=== PATIENT | female | born 1965 | race Caucasian/White ===

== ENCOUNTER 2021-07-31 10:04 | Emergency (ER) | payer OTHER, SELFPAY ==
[2021-07-31 10:08] VITALS: BP 197/99; PULSE 91; RESP 18; TEMP 36.7; O2SAT 98; BMI 29.7
--- NOTE | 2021-07-31 10:11 | XRR_ITS ---
PROCEDURE INFORMATION: Exam: XR Chest Exam date and time: 07/31/2021 10:23 AM Age: 55 years old Clinical indication: Other: Weakness TECHNIQUE: Imaging protocol: XR of the chest. Views: 1 view. Other technique: Frontal portable upright view of the chest. COMPARISON: CT angio headneck* [id number] 07/31/2021 10:21 AM FINDINGS: Lungs: Mild left lateral basilar subsegmental atelectasis. The lungs are otherwise peripherally clear bilaterally. The pulmonary vasculature is normal. Pleural spaces: No pleural effusion. No pneumothorax. Heart/Mediastinum: The heart is normal in size and contour. Bones/joints: No acute abnormality identified. XR/XR chest 1V portable [id number] IMPRESSION: Mild left lateral basilar subsegmental atelectasis.
--- NOTE | 2021-07-31 10:11 | CTR_ITS ---
PROCEDURE INFORMATION: Exam: CT Head Without Contrast Exam date and time: 07/31/2021 10:16 AM Age: 55 years old Clinical indication: Weakness, extremity TECHNIQUE: Imaging protocol: Computed tomography of the head without contrast. Radiation optimization: All CT scans at this facility use at least one of these dose optimization techniques: automated exposure control; mA and/or kV adjustment per patient size (includes targeted exams where dose is matched to clinical indication); or iterative reconstruction. Other technique: STROKE PROTOCOL was implemented. COMPARISON: No relevant prior studies available. RADIATION DOSE METRICS: Total DLP (mGy-cm): 872.45 FINDINGS: Brain: Normal. No hemorrhage. Unremarkable white matter. No mass effect. Ventricles: No ventriculomegaly. Paranasal sinuses: Visualized sinuses are unremarkable. No fluid levels. Mastoid air cells: Visualized mastoid air cells are well aerated. Bones/joints: No acute abnormality. No acute fracture. Soft tissues: Unremarkable. CT/CT head wo con* [id number] IMPRESSION: No acute intracranial abnormality identified. ASSESSMENT: ASPECTS ([place] Stroke Program Early CT Score) is 10.
--- NOTE | 2021-07-31 10:12 | ECG_ITS ---
[facility] Test Date: 2021-07-31 Pat Name: Mariano Davis Department: Room: Gender: Female Counseling Department Chair: : 1965 Requested By: Rosalina Coughlin Order Number: [id number] Nikolay MD: Felipe Marcelino M.D. Measurements Intervals Clark Rate: 82 P: 61 IL: 170 QRS: 80 QRSD: 84 T: 68 QT: 400 QTc: 468 Interpretive Statements SINUS RHYTHM WITH SINUS ARRHYTHMIA No previous ECG available for comparison Electronically Signed On 08-01-2021 15:27:53 CDT by Felipe Marcelino M.D. [id number]
--- NOTE | 2021-07-31 10:14 | CTR_ITS ---
PROCEDURE INFORMATION: Exam: CT Angiography Head With Contrast, Arteriography Exam date and time: 07/31/2021 10:21 AM Age: 55 years old Clinical indication: Weakness; Additional info: CVA TECHNIQUE: Imaging protocol: Computed tomography angiography of the head with contrast. Exam focused on the arteries. 3D rendering (Not supervised by radiologist): MIP reconstructed images were created by the technologist. Radiation optimization: All CT scans at this facility use at least one of these dose optimization techniques: automated exposure control; mA and/or kV adjustment per patient size (includes targeted exams where dose is matched to clinical indication); or iterative reconstruction. Contrast material: OMNI 350; Contrast volume: 95 ml; Contrast route: INTRAVENOUS (IV); COMPARISON: CT head wo con* [id number] 07/31/2021 10:16 AM RADIATION DOSE METRICS: Total DLP (mGy-cm): 3.91 FINDINGS: ANTERIOR CIRCULATION: Right internal carotid artery: Unremarkable. Intracranial segment is patent with no significant stenosis. No aneurysm. Right middle cerebral artery: Unremarkable. No occlusion or significant stenosis. No aneurysm. Right anterior cerebral artery: Unremarkable. No occlusion or significant stenosis. No aneurysm. Left internal carotid artery: Unremarkable. Intracranial segment is patent with no significant stenosis. No aneurysm. Left middle cerebral artery: Unremarkable. No occlusion or significant stenosis. No aneurysm. Left anterior cerebral artery: Unremarkable. No occlusion or significant stenosis. No aneurysm. POSTERIOR CIRCULATION: Right vertebral artery: Unremarkable. No occlusion or significant stenosis. No aneurysm. Left vertebral artery: Left vertebral artery dominance, a normal variant. No stenosis. Basilar artery: Unremarkable. No occlusion or significant stenosis. No aneurysm. Right posterior cerebral artery: Unremarkable. No occlusion or significant stenosis. No aneurysm. Left posterior cerebral artery: Unremarkable. No occlusion or significant stenosis. No aneurysm. Brain: No definite mass, mass effect, or midline shift. Ventricles: No ventriculomegaly. Bones/joints: No acute abnormality identified. No acute fracture. Soft tissues: Unremarkable. PROCEDURE INFORMATION: Exam: CT Angiography Neck With Contrast Exam date and time: 07/31/2021 10:21 AM Age: 55 years old Clinical indication: Weakness; Additional info: CVA TECHNIQUE: Imaging protocol: Computed tomography angiography of the neck with contrast. 3D rendering (Not supervised by radiologist): MIP reconstructed images were created by the technologist. Radiation optimization: All CT scans at this facility use at least one of these dose optimization techniques: automated exposure control; mA and/or kV adjustment per patient size (includes targeted exams where dose is matched to clinical indication); or iterative reconstruction. Contrast material: OMNI 350; Contrast volume: 95 ml; Contrast route: INTRAVENOUS (IV); COMPARISON: CT head wo con* [id number] 07/31/2021 10:16 AM RADIATION DOSE METRICS: Total DLP (mGy-cm): 2083.91 FINDINGS: Right common carotid artery: No stenosis. No dissection or occlusion. Right internal carotid artery: No stenosis of the extracranial segment. No dissection or occlusion. Right external carotid artery: No occlusion or stenosis of the origin. Left common carotid artery: No stenosis. No dissection or occlusion. Left internal carotid artery: No stenosis of the extracranial segment. No dissection or occlusion. Left external carotid artery: No occlusion or stenosis of the origin. Right vertebral artery: No stenosis. No dissection or occlusion. Left vertebral artery: Left vertebral artery dominance, a normal variant. No stenosis. Veins: Central left transverse sinus intravascular arachnoid granulation, normal variant. Soft tissues: Normal. No significant soft tissue swelling. Bones/joints: No acute fracture. Multilevel disc findings: Multilevel cervical spinal degenerative disc disease, spondylosis and neural foraminal stenoses. Lungs: Bilateral upper lobe calcified pulmonary parenchymal granulomas. Moderate centrilobular emphysema bilaterally. CT/CT angio headneck* [id number] IMPRESSION: No acute intracranial vascular abnormality identified. IMPRESSION: 1. No acute extracranial vascular abnormality identified. 2. Pulmonary emphysema. REFERENCES: NASCET CRITERIA. The degree of internal carotid artery stenosis is based on NASCET criteria. Normal is no stenosis. Mild is less than 50% stenosis. Moderate is 50-69% stenosis. Severe is 70% to 99% stenosis. Total occlusion is no detectable patent lumen. THIS REPORT CONTAINS FINDINGS THAT MAY BE CRITICAL TO PATIENT CARE. The findings were verbally communicated by me to DR. BLAKE PRICE via telephone conference at 10:38 AM CDT on 07/31/2021. The findings were acknowledged and understood.
--- NOTE | 2021-07-31 10:14 | W.ED.NEUROSD ---
HPI - Neuro Symptoms/Deficit General: Chief Complaint: Weakness Stated Complaint: possible stroke Time Seen by Provider: 07/31/21 10:04 Source: patient Mode of arrival: ambulatory Limitations: no limitations History of Present Illness: 55-year-old female states that roughly 1 hour ago started having numbness to the left side of her face and to the left side of her arm. She states it starts at her head and goes down her face and left arm. Patient denies any weakness she is able to ambulate she has had no slurred speech denies headache no history of stroke. Patient does have a history of high blood pressure denies any chest pain denies any vomiting or diarrhea. Associated symptoms: Deny chest pain, headache(s), nausea or vomiting Review of Systems Const: Denies: fever(s), chills, body aches or change in appetite Eyes: Denies: blurry vision or eye discomfort ENMT: Denies: throat pain or dental pain Card: Denies: chest pain Resp: Denies: dyspnea GI: Denies: abdominal pain, nausea, vomiting or diarrhea : Denies: dysuria Musc: Denies: neck pain or back pain Skin/Breast: Denies: rash Neuro: Reports: numbness in extremities; Denies: headache(s) Psych: Denies: depression Evan/Lymph: Denies: easy bruising All/Imm: Denies: urticaria NIH stroke score NIHSS: Level Of Consciousness - 1a: 0 Level Of Consciousness Questions - 1b: Both Correct Level Of Consciousness Commands - 1c: Both Correct Best Gaze - 2: Normal Visual [place] - 3: No Visual Loss Facial Palsy - 4: Normal Motor Arm Right - 5: No Drift Motor Arm Left - 5: No Drift Motor Leg Right - 6: No Drift Motor Leg Left - 6: No Drift Limb Ataxia - 7: Absent Sensory - 8: Mild To Moderate Loss Best Language - 9: No Aphasia Dysarthia - 10: Normal Extinction And Inattention - 11: 0 Score: Total Score: 1 Physical Exam Const: COMMON NORMALS: no acute distress, patient oriented x3 and healthy appearing HENMT: COMMON NORMALS: normocephalic and atraumatic HEAD & SCALP: normocephalic and atraumatic Eye: COMMON NORMALS: Equal, round and reactive pupils present and EOMs intact bilaterally PUPIL: Yes Equal, round and reactive pupils present Neck/C-Spine: COMMON NORMALS: full ROM and supple Chest: COMMONS NORMALS: normal inspection of the chest and normal palpation of entire chest wall Resp: COMMON NORMALS: normal respiratory effort, No retractions, No use of accessory muscles and clear to auscultation bilaterally AUSCULTATION: clear to auscultation bilaterally Cardio: COMMON NORMALS: regular rate, regular rhythm and No murmurs present (Cardio) RATE: regular rate RHYTHM: regular rhythm GI: COMMON NORMALS: Normal to inspection, nondistended, normoactive bowel sounds present, Soft to palpation, non-tender and no masses PALPATION: Yes Soft to palpation Extremity: COMMON NORMALS: normal to inspection and full ROM Neuro: COMMON NORMALS: patient oriented x3, moves all extremities and no focal motor deficits Psych: COMMON NORMALS: mental status grossly normal, Normal thought process present and cooperative THOUGHT PROCESS: Normal thought process present Skin: COMMON NORMALS: no rashes or lesions noted and no wounds GENERAL SKIN EXAM: no rashes or lesions noted Course Vital Signs: Vital signs: Vital Signs Temperature 98.1 F 07/31/21 10:08 Pulse Rate 91 07/31/21 10:08 Respiratory Rate 18 07/31/21 10:08 Blood Pressure 197/99 07/31/21 10:08 Pulse Oximetry 98 07/31/21 10:08 MDM - Neuro Symptoms/Deficit Medical Decision Making Patient presents here with paresthesias to her left side for the history she is actually had some symptoms over the last 2 days with a getting worse an hour ago. NIH here is 1 just for the lack of sensation no other neuro findings noted. CT head and CT angio both normal I spoke to Dr. Levy of neurology who recommended to start her on Plavix aspirin and a statin and she will see her in clinic this week I informed patient of this. I informed her she has any worsening symptoms I also informed her if she has worsening numbness or she had any weakness slurred speech visual changes she is to return to ER immediately. She understands agrees to plan. Lab Data : 07/31/21 10:16 07/31/21 10:16 Radiology Impressions Chest X-Ray 07/31/21 10:11 IMPRESSION: Mild left lateral basilar subsegmental atelectasis. Head CT 07/31/21 10:11 IMPRESSION: No acute intracranial abnormality identified. ASSESSMENT: ASPECTS ([place] Stroke Program Early CT Score) is 10. ADDENDUM: 07/31/21 1047 THIS REPORT CONTAINS FINDINGS THAT MAY BE CRITICAL TO PATIENT CARE. The findings were verbally communicated by me to DR. BLAKE COUGHLIN via telephone conference at 10:38 AM CDT on 07/31/2021. The findings were acknowledged and understood. Head/Neck CTA 07/31/21 10:14 IMPRESSION: No acute intracranial vascular abnormality identified. IMPRESSION: 1. No acute extracranial vascular abnormality identified. 2. Pulmonary emphysema. REFERENCES: NASCET CRITERIA. The degree of internal carotid artery stenosis is based on NASCET criteria. Normal is no stenosis. Mild is less than 50% stenosis. Moderate is 50-69% stenosis. Severe is 70% to 99% stenosis. Total occlusion is no detectable patent lumen. THIS REPORT CONTAINS FINDINGS THAT MAY BE CRITICAL TO PATIENT CARE. The findings were verbally communicated by me to DR. BLAKE COUGHLIN via telephone conference at 10:38 AM CDT on 07/31/2021. The findings were acknowledged and understood. Laboratory Results WBC 9.3 10^3/uL (4.0-10.0) 07/31/21 10:16 RBC 5.18 10^6/uL (4.1-5.3) 07/31/21 10:16 Hgb 15.3 g/dL (11.5-15.3) 07/31/21 10:16 Hct 45.8 % (37.0-47.0) 07/31/21 10:16 MCV 88.4 fl (81-99) 07/31/21 10:16 MCH 29.5 pg (28.0-34.0) 07/31/21 10:16 MCHC 33.4 g/dL (30.0-36.0) 07/31/21 10:16 RDW 13.0 % (12.1-15.1) 07/31/21 10:16 Plt Count 323 10^3/cmm (130-400) 07/31/21 10:16 MPV 9.8 fL (7.4-10.4) 07/31/21 10:16 Neut % (Auto) 45.9 % 07/31/21 10:16 Lymph % (Auto) 45.1 % 07/31/21 10:16 [place] % (Auto) 5.7 % 07/31/21 10:16 Eos % (Auto) 2.7 % 07/31/21 10:16 Baso % (Auto) 0.2 % 07/31/21 10:16 Neut # (Auto) 4.27 10^3/uL (1.8-7.7) 07/31/21 10:16 Lymph # (Auto) 4.2 10^3/uL (0.8-4.8) 07/31/21 10:16 [place] # (Auto) 0.5 10^3/uL (0.2-0.9) 07/31/21 10:16 Eos # (Auto) 0.3 10^3/uL (0.0-0.8) 07/31/21 10:16 Baso # (Auto) 0.0 10^3/uL (0.0-0.1) 07/31/21 10:16 Nucleated RBC % (auto) 0 % 07/31/21 10:16 Nucleated RBCs # 0.0 /100WBC 07/31/21 10:16 PT 11.70 SECONDS (12.1-14.9) L 07/31/21 10:16 INR 0.83 (0.8-1.2) 07/31/21 10:16 Sodium 139 mmol/L (136-145) 07/31/21 10:16 Potassium 3.8 mmol/L (3.5-5.1) 07/31/21 10:16 Chloride 105 mmol/L (98-107) 07/31/21 10:16 Carbon Dioxide 21 mmol/L (22-29) L 07/31/21 10:16 Anion Gap 16.8 (5-19) 07/31/21 10:16 BUN 13 mg/dL (6-20) 07/31/21 10:16 Creatinine 0.7 mg/dL (0.5-0.9) 07/31/21 10:16 GFR Calculation 87.5 mL/min (90-130) L 07/31/21 10:16 Glucose 107 mg/dL (65-115) 07/31/21 10:16 POC Glucose 100 mg/dL (70-110) 07/31/21 10:17 Calculated Osmolality 289 mOsm/kg (285-295) 07/31/21 10:16 Calcium 10.5 mg/dL (8.5-10.5) 07/31/21 10:16 Total Bilirubin 0.4 mg/dL (0.15-1.2) 07/31/21 10:16 AST 26 U/L (0-32) 07/31/21 10:16 ALT 27 U/L (0-33) 07/31/21 10:16 Alkaline Phosphatase 121 IU/L (35-105) H 07/31/21 10:16 Total Protein 7.6 g/dL (6.6-8.7) 07/31/21 10:16 Albumin 4.9 g/dL (3.5-5.2) 07/31/21 10:16 Globulin 2.7 g/dL (1.3-4.6) 07/31/21 10:16 Urine Color Yellow (Yellow) 07/31/21 10:15 Urine Appearance Clear (CLEAR) 07/31/21 10:15 Urine pH 6.5 (5-7) 07/31/21 10:15 Ur Specific Camilla 1.010 (1.005-1.030) 07/31/21 10:15 Urine Protein Neg (Negative) 07/31/21 10:15 Urine Glucose (UA) Norm (Normal) 07/31/21 10:15 Urine Ketones Negative (Negative) 07/31/21 10:15 Urine Blood Neg (Negative) 07/31/21 10:15 Urine Nitrate Negative (Negative) 07/31/21 10:15 Urine Bilirubin Neg (Negative) 07/31/21 10:15 Urine Urobilinogen Norm mg/dL (Negative) 07/31/21 10:15 Ur Leukocyte Esterase Negative (Negative) 07/31/21 10:15 EKG Data EKG 1: I personally reviewed and interpreted this EKG as follows: EKG interpretation date: 07/31/21 EKG interpretation time: 10:35 Interpretation: nsr hr [address] or t wave abnormalities qrs 84 qtc 438 Discharge Plan Discharge Patient Disposition: Home Clinical Impression: Paresthesia Condition: Stable Prescriptions: New aspirin 81 mg capsule 81 mg PO DAILY Qty: 30 0RF Plavix 75 mg tablet 75 mg PO DAILY Qty: 30 0RF atorvastatin 80 mg tablet 80 mg PO DAILY Qty: 30 0RF Discharge Orders: Discharge ED (Routine); Ordered 07/31/21 Ordered By: Blake Coughlin Referrals: Linda Levy MD [Physician] - 1-3 days Discharge Diet: Advance as tolerated Discharge Activity: Resume usual activity Patient Instructions: Paresthesia (ED) Coding Level of Care Code ED Electrician Journeyman Wireman for Chg Fwd Exam Comprehensive
--- NOTE | 2021-07-31 10:19 | PC.NURSE ---
PT TAKEN TO CT VIA STRETCHER AND RN.
[2021-07-31 10:21] LABS: Glucose Point of Care 100 mg/dL (70-110)
[2021-07-31] MEDS: iohexol 350 mg/mL 100 mL Btl IV (10:21)
--- NOTE | 2021-07-31 10:30 | PC.NURSE ---
PT PLACED ON CONTINUOUS SPO2, NIBP, AND CM.
[2021-07-31 10:33] LABS: Basophils % 0.2 %; Eosinophils # 0.3 10^3/uL (0.0-0.8); Eosinophils % 2.7 %; Hematocrit 45.8 % (37.0-47.0); Hemoglobin 15.3 g/dL (11.5-15.3); Lymphocytes # 4.2 10^3/uL (0.8-4.8); Lymphocytes % 45.1 %; Mean Corpuscular HGB Conc 33.4 g/dL (30.0-36.0); Mean Corpuscular Hemoglobin 29.5 pg (28.0-34.0); Mean Corpuscular Volume 88.4 fl (81-99); Mean Platelet Volume 9.8 fL (7.4-10.4); Monocytes # 0.5 10^3/uL (0.2-0.9); Monocytes % 5.7 %; Neutrophils # 4.27 10^3/uL (1.8-7.7); Neutrophils % 45.9 %; Nucleated Red Blood Cells % 0 %; Platelet Count 323 10^3/cmm (130-400); Red Blood Count 5.18 10^6/uL (4.1-5.3); White Blood Count 9.3 10^3/uL (4.0-10.0)
[2021-07-31 10:33] LABS: Add Urine Microscopic? NO; Charge for UA Resulting for Rev
[2021-07-31 11:00] VITALS: BP 130/94; PULSE 80; RESP 19; O2SAT 97
[2021-07-31 11:00] LABS: Bilirubin Urine Neg (Negative); Blood Urine Neg (Negative); Glucose Urine UA Norm (Normal); Ketones Urine Negative (Negative); Leukocyte Esterase Urine Negative (Negative); Nitrate Urine Negative (Negative); Protein Urine Neg (Negative); Urine Appearance Clear (CLEAR); Urine Color Yellow (Yellow); Urobilinogen Urine Norm (Negative); pH Urine 6.5 (5-7)
[2021-07-31 11:00] LABS: Alanine Aminotransferase 27 U/L (0-33); Albumin Level 4.9 g/dL (3.5-5.2); Alkaline Phosphatase 121 IU/L (35-105); Aspartate Amino Transferase 26 U/L (0-32); Blood Urea Nitrogen 13 mg/dL (6-20); Calcium 10.5 mg/dL (8.5-10.5); Carbon Dioxide 21 mmol/L (22-29); Chloride 105 mmol/L (98-107); Globulin 2.7 g/dL (1.3-4.6); Glomerular Filtration Rate 87.5 mL/min (90-130); Glucose 107 mg/dL (65-115); Osmolality Calculated 289 mOsm/kg (285-295); Sodium 139 mmol/L (136-145); Total Bilirubin 0.4 mg/dL (0.15-1.2); Total Protein 7.6 g/dL (6.6-8.7)
[2021-07-31] MEDS: clopidogrel 300 mg Tablet PO (11:04)
[2021-07-31] MEDS: aspirin 81 mg Chew Tablet 324 MG PO (11:05)
[2021-07-31 11:11] LABS: INR 0.83 (0.8-1.2)
[2021-07-31 11:14] LABS: Anion Gap 16.8 (5-19); Potassium 3.8 mmol/L (3.5-5.1)
[2021-07-31 11:25] VITALS: BP 139/94; PULSE 83; RESP 18; O2SAT 94
--- NOTE | 2021-08-01 15:54 | DCPLANNER ---
Addendum entered by Naya Jo 08/31/21 22:05: Patient had a follow up appointment scheduled with neurology - patient did not attend appointment. Addendum entered by Naya Jo 08/31/21 21:47: Patient had a follow up appointment scheduled with Dr. Levy - patient did not attend appointment. Addendum entered by Naya Jo 08/04/21 08:13: Patient has a follow up appointment scheduled for Tuesday, August 31, 2021 at 1:[address] Levy at neurology. Clinic will call patient with appointment information. Original Note: manager latin had message to schedule a follow up appointment for patient with neurology for paresthesias. Case manger sent patients information to the neurology front office staff thru [employer] messaging system. Patients information will be printed and reviewed. Clinic will call patient with appointment information.
== END 2021-07-31 11:46 | disposition home or self-care (01) ==
PROVIDERS: Emergency Provider Emergency Medicine
DX: R20.2 Paresthesia of skin (principal)
CPT/HCPCS: 36416; 70450; 70496; 70498; 71045; 80053; 81003; 82962; 85025; 85610; 93005; 99283; Q9967